=== PATIENT | female | born 1950 | race Caucasian/White ===

== ENCOUNTER 2020-02-03 10:15 | Emergency (ER) | payer MEDICAID, OTHER ==
[~2020-02-03] VITALS: Ht 165.1 cm; Wt 136.1 kg
--- NOTE | 2020-02-03 10:25 | NUR ---
PT TO CT VIA [facility].
[2020-02-03] MEDS ORDERED: ASPIRIN (10:31)
[2020-02-03] MEDS ORDERED: LEXAPRO (10:31)
[2020-02-03] MEDS ORDERED: NIFEDIPINE (10:31)
[2020-02-03] MEDS ORDERED: OMEPRAZOLE (10:31)
[2020-02-03] MEDS ORDERED: INSULIN (10:31)
[2020-02-03] MEDS ORDERED: METOPROLOL (10:31)
[2020-02-03] MEDS ORDERED: LOSARTAN (10:31)
[2020-02-03] MEDS ORDERED: HYDROCHLOROTHIAZIDE (10:31)
[2020-02-03 10:33] LABS: BASOPHILS # (AUTO) 0.1 K/uL (0.0-8.0); BASOPHILS % (AUTO) 1.1 % (0.0-2.0); EOSINOPHILS # (AUTO) 0.3 K/uL (0.0-0.7); EOSINOPHILS % (AUTO) 3.4 % (0.0-7.0); HEMATOCRIT 35.1 % (31.2-41.9); HEMOGLOBIN 11.4 g/dL (10.9-14.3); LYMPHOCYTES % (AUTO) 13.5 % (20.5-51.5); MEAN CORPUSCULAR HEMOGLOBIN 29.3 uug (24.7-32.8); MEAN CORPUSCULAR HGB CONC 33 g/dL (32.3-35.6); MEAN CORPUSCULAR VOLUME 90.1 fL (75.5-95.3); MONOCYTES # (AUTO) 0.3 K/uL (2.0-10.0); MONOCYTES % (AUTO) 3.6 % (0.0-11.0); NEUTROPHILS # (AUTO) 5.7 K/uL (1.8-8.9); NEUTROPHILS % (AUTO) 78.4 % (38.5-71.5); PLATELET COUNT (AUTO) 475 K/uL (179-408); RED BLOOD CELL COUNT(AUTO) 3.89 MIL/uL (3.63-4.92); WHITE BLOOD COUNT (AUTO) 7.3 K/uL (3.8-11.8)
[2020-02-03 10:40] LABS: CREATININE 2.2 mg/dL (0.6-1.3); POTASSIUM 5.3 mmol/L (3.5-5.1)
--- NOTE | 2020-02-03 12:11 | NUR ---
Patient ambulated to bathroom without assistance. Patient is for discharge to home per Dr Daniels. IV removed. Catheter intact and site benign. Pressure and 4x4 gauze applied to site. No bleeding noted. Written and verbal after care instructions given in [place] by Dr Daniels. Patient verbalized understanding of instructions. Stressed follow up with primary doctor or to return to ER for worsening s/s.
--- NOTE | 2020-02-03 12:16 | NUR ---
Patient discharged to home in stable condition & slow staedy gait. Written and verbal after care instructions given to patient's daughter. Patient's daughter verbalized understanding and compliance of instructions. Stressed follow up with primary doctor or return to ER for worsening s/s. Copies of all the tests' results were provided to patient's daughter.
== END 2020-02-03 12:17 | disposition home or self-care (01) ==
LOC: ER 10:15
DX: E11.649 Type 2 diabetes mellitus with hypoglycemia without coma (principal); N28.9 Disorder of kidney and ureter, unspecified; E03.9 Hypothyroidism, unspecified; R94.31 Abnormal electrocardiogram [ECG] [EKG]; I10 Essential (primary) hypertension; K21.9 Gastro-esophageal reflux disease without esophagitis; Z79.899 Other long term (current) drug therapy; Z79.4 Long term (current) use of insulin; Z20.828 Contact with and (suspected) exposure to other viral communicable diseases
CPT/HCPCS: 36415; 70030-TC; 70450; 71045; 85025; 85730; 93005; A4663